=== PATIENT | male | born 1975 | race Caucasian/White ===

== ENCOUNTER 2022-05-11 15:19 | Emergency (ER) | payer BC ==
[2022-05-11] MEDS ORDERED: SODIUM CHLORIDE 0.9% 1,000 ML IV ONE (16:16)
[2022-05-11] MEDS ORDERED: methocarbamoL 500 MG TAB PO STA (16:19)
[2022-05-11 16:22] VITALS: BP 127/77; PULSE 89; RESP 16; TEMP 98.4
--- NOTE | 2022-05-11 17:11 | XR ---
EXAMINATION TYPE: XR chest 1V portable DATE OF EXAM: 05/11/2022 5:04 PM COMPARISON: none TECHNIQUE: XR chest 1V portable Portable AP radiograph of the chest. CLINICAL INDICATION:Male, 46 years old with history of fall; FINDINGS: Lungs/Pleura: Left basilar atelectasis. There is no evidence of pleural effusion, focal consolidation , or pneumothorax. Pulmonary vascularity: Unremarkable. Heart/mediastinum: Cardiomediastinal silhouette is unremarkable. Musculoskeletal: No acute osseous pathology. IMPRESSION: No acute cardiopulmonary disease/process.
[2022-05-11] MEDS ORDERED: MORPHINE SULFATE 4 MG/ML SYRINGE IVP STA ×2 (17:20→19:48)
--- NOTE | 2022-05-11 17:25 | XR ---
EXAMINATION TYPE: XR knee limited LT DATE OF EXAM: 05/11/2022 5:05 PM INDICATION: Patient age:Male; 46 years old; Reason for study: fall, pain; COMPARISON: None. TECHNIQUE: The Left knee(s) was examined in Frontal, lateral and oblique projections. FINDINGS: No evidence of any acute osseous pathology, soft tissue swelling, or joint effusion is no vinh. Small osteophytes of the tibial plateau and patella. IMPRESSION: 1. No acute osseous pathology. 2. Mild tricompartmental osteoarthritic changes.
--- NOTE | 2022-05-11 17:27 | XR ---
EXAMINATION TYPE: XR femur LT, XR Hip Complete LT DATE OF EXAM: 05/11/2022 5:04 PM INDICATION: Patient age:Male; 46 years old; Reason for study: fall, pain; COMPARISON: None TECHNIQUE: The left femur was evaluated in frontal and lateral views. The left hip was evaluated in frontal and lateral views. FINDINGS: Periprosthetic fracture with medial angulation. There is up to 3.6 cm displacement with medardo rtening. There is shortening of the fracture site. IMPRESSION: Acute left hip periprosthetic stem fracture with 3.6 cm displacement and angulation. There is mild sh ortening of the femur.
--- NOTE | 2022-05-11 17:33 | CT ---
EXAMINATION TYPE: CT brain wo con CT DLP: 1165.4 mGycm, Automated exposure control for dose reduction was used. DATE OF EXAM: 05/11/2022 5:07 PM COMPARISON: None. CLINICAL INDICATION:Male, 46 years old with history of fall, pain, Fall. TECHNIQUE: Brain: Axial CT images of the brain were obtained with coronal and sagittal reformats created and rev iewed. Contrast used: None. Oral contrast used: None. FINDINGS: Brain: Extra-axial spaces: No abnormal extra-axial fluid collections. Ventricular system: Within normal limits Cerebral parenchyma: No acute intraparenchymal hemorrhage or mass effect. The keys-white junction is well differentiated. Cerebellum: Unremarkable. Mass effect: No evidence of midline shift. Intracranial vasculature: unremarkable Soft tissues: Normal. Calvarium/osseous structures: No depressed skull fracture. Paranasal sinuses and mastoid air cells: Mild scattered paranasal sinus disease. Visualized orbits: Orbital contents are intact. IMPRESSION: No acute intracranial process.
[2022-05-11] MEDS ORDERED: KETOROLAC 15 MG/ML 1 ML VIAL IVP STA (18:36)
[2022-05-11 18:41] LABS: Basophils % (A) 0 %; Eosinophils # (A) 0.1 k/uL (0-0.7); Eosinophils % (A) 1 %; HCT 27.2 % (39.0-53.0); HGB 8.7 gm/dL (13.0-17.5); Lymphocytes # (A) 0.6 k/uL (1.0-4.8); Lymphocytes % (A) 9 %; MCH 31.9 pg (25.0-35.0); MCHC 32.1 g/dL (31.0-37.0); MCV 99.5 fL (80.0-100.0); Mean Platelet Volume 9.4; Monocytes # (A) 0.2 k/uL (0-1.0); Monocytes % (A) 4 %; Neutrophils # (A) 5.7 k/uL (1.3-7.7); Neutrophils % (A) 85 %; Platelet Count 160 k/uL (150-450); RBC 2.73 m/uL (4.30-5.90); RDW 13.7 % (11.5-15.5); WBC 6.7 k/uL (3.8-10.6)
--- NOTE | 2022-05-11 18:44 | ED ---
General Adult HPI - General Chief complaint: Fall Stated complaint: Fall Time Seen by Provider: 05/11/22 16:00 Source: patient, RN notes reviewed, old records reviewed Mode of arrival: ambulatory Limitations: no limitations - History of Present Illness Initial comments: Patient is a 46-year-old male with past medical history remarkable for prior alcohol abuse, as well as prior bilateral hip replacements who presents emergency Department after a fall. States he was standing at home when his left leg gave out on him. He fell onto his left side. Does not believe his hit his head but is uncertain if he passed out or not. Denies any other injuries other than to his left hip. Left leg is shortened, rotated. Denies any numbness. Endorses pain at the hip. States he previously had surgery done and report hospital by Dr. Duncan. He denies any chest pain, shortness breath, abdominal pain, back pain, nausea, vomiting. His no other acute complaint at this time. Presents over concern for injury to his left femur or hip replacement. Patient states she would prefer to remain in the [place] area rather than be transferred back downto. Prior hip surgeries were done 4 years ago approximately. - Related Data Home Medications Medication Instructions Recorded Confirmed Multivitamins, Thera [Multivitamin 1 tab PO DAILY 05/11/22 05/11/22 (formulary)] Nicotine 14Mg/24Hr Patch [Habitrol] 1 patch TRANSDERM DAILY PRN 05/11/22 05/11/22 Previous Rx's Medication Instructions Recorded Acetaminophen Tab [Tylenol] 650 mg PO Q4HR PRN tab 04/25/22 Naltrexone HCl [Revia] 50 mg PO DAILY 30 Days #30 tab 04/25/22 Pantoprazole [Protonix] 40 mg PO AC-BID 30 Days #60 tab 04/25/22 Sertraline [Zoloft] 100 mg PO DAILY 30 Days #30 tab 04/25/22 Thiamine [Vitamin B-1] 100 mg PO DAILY 30 Days #30 tablet 04/25/22 traZODone HCL [Desyrel] 100 mg PO HS 30 Days #30 tab 04/25/22 Allergies Allergy/AdvReac Type Severity Reaction Status Date / Time No Known Allergies Allergy Verified 05/11/22 18:27 Review of Systems ROS Statement: Those systems with pertinent positive or pertinent negative responses have been documented in the HPI. Review of Systems: CONST: Denies fever EYES: Denies blurry vision ENT: Denies nasal congestion C/V: Denies Chest pain RESP: Denies shortness of breath GI: Denies abdominal pain : Denies dysuria SKIN: Denies rash. MSK: Endorses left hip pain NEURO: Denies headache ROS Other: All systems not noted in ROS Statement are negative. Past Medical History Past Medical History: Asthma, Hypertension History of Any Multi-Drug Resistant Organisms: None Reported Past Surgical History: Joint Replacement Additional Past Surgical History / Comment(s): bilateral hip replacement , fx femur secondary to hip replacement. Past Anesthesia/Blood Transfusion Reactions: No Reported Reaction Past Psychological History: No Psychological Hx Reported Smoking Status: Never smoker Past Alcohol Use History: None Reported, Abuse, Daily Past Drug Use History: None Reported General Exam - General Exam Comments Initial Comments: General: Appears in mild distress secondary to left hip pain. HEAD: Normal with no signs of head trauma. Negative Walker sign. Negative raccoon eyes. EYES: PERRLA, EOMI, conjunctiva normal, no discharge. Pupils 3 mm and equal bilaterally. ENT: Hearing grossly intact, normal oropharynx. RESPIRATORY: Clear breath sounds bilaterally. No wheezes, rales, or rhonchi. C/V: Regular rate and rhythm. S1 and S2 auscultated, peripheral pulses 2+ and intact throughout ABD: Abd is soft, nontender, nondistended EXT: Her extremity is shortened and externally rotated. Tenderness over the proximal left femur. I do suspect a hip or femur fracture fracture. No midline spinal tenderness to palpation. Pelvis is stable. SKIN: No rashes or lesions observed on exposed skin. NEURO: Alert and oriented 4. No focal sensory strength deficits. Limitations: no limitations Course Vital Signs 05/11/22 15:20 Temperature 98.4 F Pulse Rate 89 Respiratory 16 Rate Blood Pressure 127/77 O2 Sat by Pulse 100 Oximetry Medical Decision Making - Medical Decision Making Was pt. sent in by a medical professional or institution (, PA, TV PRODUCTION ASSISTANT, urgent care, hospital, or fci...) When possible be specific @ -No Did you speak to anyone other than the patient for history (EMS, parent, family, police, friend...)? What history was obtained from this source @ -No Did you review nursing and triage notes (agree or disagree)? Why? @ -I reviewed and agree with nursing and triage notes Were old charts reviewed (outside hosp., previous admission, EMS record, old EKG, old radiological studies, urgent care reports/EKG's, fci records)? Report findings @ -No old charts were reviewed Differential Diagnosis (chest pain, altered mental status, abdominal pain women, abdominal pain men, vaginal bleeding, weakness, fever, dyspnea, syncope, headache, dizziness, GI bleed, back pain, seizure, CVA, palpatations, mental health, musculoskeletal)? @ -Muscle strain, muscle sprain, hip fracture, bony traumatic injury, intracranial injury. Fall. This list is not all inclusive. EKG interpreted by me (3pts min.). @ -None done X-rays interpreted by me (1pt min.). @ -X-rays of the chest reveals no acute cardiopulmonary processes obvious. Left lower extremity x-rays and pelvis x-rays remarkable for a left hip periprosthetic stem fracture. CT interpreted by me (1pt min.). @ -CT brain reveals no obvious evidence of acute intracranial process or injury. U/S interpreted by me (1pt. min.). @ -None done What testing was considered but not performed or refused? (CT, X-rays, U/S, la bs)? Why? @ -None What meds were considered but not given or refused? Why? @ -Did discuss analgesia medications with the patient. Initially refuses opiates. We will start with Robaxin been at his request. Toradol will be held at this time until CT brain returns as he did experiencing episode. Did you discuss the management of the patient with other professionals (professionals i.e. , PA, TV PRODUCTION ASSISTANT, lab, RT, psych nurse, social work therapist, floor specialist, teacher, traffic division commanding officer, case loader operator)? Give summary @ -Yes, at the patient's request, I initially did reach out to Dr. Contreras and Dr. Yeung's group as the patient's mother who is at bedside has prior history with them and family members have seen him in the past. They requested reaching out to them first to see if they would accept the case. I did discuss the case with Dr. Contreras who discussed the case and reviewed imaging with his partners including Dr. Yeung and they are unable to manage it at this time. After updating the patient and family, at this time we will reach out to Dr. Savage who is on-call for orthopedics. After discussion with Dr. savage, he recommends transfer back to [facility] with the original surgery was performed for higher level care. Due to the complexity of the fracture. Spoke with Dr. Lemus at [facility] who accepted the patient. smoking cessation discussed for >3mins.? @ -No Was critical care preformed (if so, how long)? @ -Yes, 35 minutes. Were there social determinants of health that impacted care today? How? (Homelessness, low income, unemployed, alcoholism, drug addiction, jaffe sportation, low edu. Level, literacy, decrease access to med. care, detention, rehab)? @ -No Was there de-escalation of care discussed even if they declined (Discuss DNR or withdrawal of care, Hospice)? DNR status @ -No What co-morbidities impacted this encounter? (DM, HTN, Smoking, COPD, CAD, Cancer, CVA, ARF, Chemo, Hep., AIDS, mental health diagnosis, sleep apnea, morbid obesity)? @ -Prior bilateral hip replacements Was patient admitted / discharged? Hospital course, mention meds given and route, prescriptions, significant lab abnormalities, going to OR and other pertinent info. @ -Based on the patient's presentation and physical exam, I'm concerned for a left femoral or hip fracture after a mechanical fall from standing. We will obtain plain film x-rays of the left leg as well as CT brain. Preop labs will be obtained as well over concern for fracture. Patient was in agreement this plan. He is hemodynamically stable. Patient be started on 1 L fluid bolus, as well as administered oral Robaxin at his request after discussing possible analgesia medications. He would like to avoid opiate medications of possible. We will hold Toradol until CT brain is back. He was in agreement with this plan. Patient's imaging is remarkable for a left periprosthetic stem fracture of the left hip. CT brain is unremarkable. After the patient. Discussed under standing as well as family, including his mother who is an RN. I discussed the patient does require surgery, and I did offer transfer down to [facility] however they would like to remain in the area and stay at [facility]. Patient's family and mother do have a history with Dr. Yeung's group. They requested that I recheck to their group first to see if they're willing to accept the case despite him not being control systems developer. As there is a history, and at patient's request this was done. I spoke with Dr. Contreras who was control systems developer who reached out to his partners including Anjana and reviewed imaging. Unfortunately they cannot handle the case at this time. After updating the family and discussing with them, they were in agreement they would still like to remain in [place] and were okay with reaching out to the on-call team, Dr. savage and their group.After speaking Dr. Savage, he recommends a higher level of care, and recommends that the patientbe transferred back to [facility] for surgery with his original surgeon Dr. Ranjith Duncan. I did the patient's family and they were in agreement this plan. Patient will receive a Bourne catheter. Patient received Toradol for pain at this time. patient was in agreement this plan. Transfer was delayed due to the above reasons, as the patient requested to stay at [facility] initially and requested specific ortho surgeons prior to the on-call ortho surgeon. After both were spoken to and refused, we reached out to [facility] at 1904 who eventually accepted the patient at approximately 1935. Accepting physician is Dr. Lemus. Patient transferred to their ER in cat2. Patient and family updated. They were in agreement with the plan. Patient transferred in stable condition. Placed in knee immobilizer and bourne placed prior to transfer. Undiagnosed new problem with uncertain prognosis? @ -No Drug Therapy requiring intensive monitoring for toxicity (Heparin, Nitro, Insulin, Cardizem)? @ -No Were any procedures done? @ -No Diagnosis/symptom? @ -Mechanical fall Acute, or Chronic, or Acute on Chronic? @ -Acute Uncomplicated (without systemic symptoms) or Complicated (systemic symptoms)? @ -Complicated Side effects of treatment? @ -No Exacerbation, Progression, or Severe Exacerbation? @ -No Poses a threat to life or bodily function? How? (Chest pain, USA, MS, pneumonia, PE, COPD, DKA, ARF, appy, cholecystitis, CVA, Diverticulitis, Homicidal, Suicidal, threat to staff... and all critical care pts) @ -No Diagnosis/symptom? @ -Left hip periprosthetic stem fracture Acute, or Chronic, or Acute on Chronic? @ -Acute Uncomplicated (without systemic symptoms) or Complicated (systemic symptoms)? @ -Complicated Side effects of treatment? @ -none Exacerbation, Progression, or Severe Exacerbation] @ -no Poses a threat to life or bodily function? @ -no - Lab Data Result diagrams: 05/11/22 18:34 05/11/22 18:34 Lab Results 05/11/22 05/11/22 05/11/22 Range/Units 18:34 18:34 18:34 WBC 6.7 (3.8-10.6) k/uL RBC 2.73 L (4.30-5.90) m/uL Hgb 8.7 L (13.0-17.5) gm/dL Hct 27.2 L (39.0-53.0) % MCV 99.5 (80.0-100.0) fL MCH 31.9 (25.0-35.0) pg MCHC 32.1 (31.0-37.0) g/dL RDW 13.7 (11.5-15.5) % Plt Count 160 (150-450) k/uL MPV 9.4 Neutrophils % 85 % Lymphocytes % 9 % Monocytes % 4 % Eosinophils % 1 % Basophils % 0 % Neutrophils # 5.7 (1.3-7.7) k/uL Lymphocytes # 0.6 L (1.0-4.8) k/uL Monocytes # 0.2 (0-1.0) k/uL Eosinophils # 0.1 (0-0.7) k/uL Basophils # 0.0 (0-0.2) k/uL PT 10.1 (9.0-12.0) sec INR 1.0 (<1.2) APTT 25.3 (22.0-30.0) sec Sodium 135 L (137-145) mmol/L Potassium 4.1 (3.5-5.1) mmol/L Chloride 107 (98-107) mmol/L Carbon Dioxide 26 (22-30) mmol/L Anion Gap 2 mmol/L BUN 8 L (9-20) mg/dL Creatinine 0.59 L (0.66-1.25) mg/dL Est GFR (CKD-EPI)AfAm >90 (>60 ml/min/1.73 sqM) Est GFR (CKD-EPI)NonAf >90 (>60 ml/min/1.73 sqM) Glucose 101 H (74-99) mg/dL Calcium 7.9 L (8.4-10.2) mg/dL Coronavirus (PCR) (Not Detectd) 05/11/22 Range/Units 19:09 WBC (3.8-10.6) k/uL RBC (4.30-5.90) m/uL Hgb (13.0-17.5) gm/dL Hct (39.0-53.0) % MCV (80.0-100.0) fL MCH (25.0-35.0) pg MCHC (31.0-37.0) g/dL RDW (11.5-15.5) % Plt Count (150-450) k/uL MPV Neutrophils % % Lymphocytes % % Monocytes % % Eosinophils % % Basophils % % Neutrophils # (1.3-7.7) k/uL Lymphocytes # (1.0-4.8) k/uL Monocytes # (0-1.0) k/uL Eosinophils # (0-0.7) k/uL Basophils # (0-0.2) k/uL PT (9.0-12.0) sec INR (<1.2) APTT (22.0-30.0) sec Sodium (137-145) mmol/L Potassium (3.5-5.1) mmol/L Chloride (98-107) mmol/L Carbon Dioxide (22-30) mmol/L Anion Gap mmol/L BUN (9-20) mg/dL Creatinine (0.66-1.25) mg/dL Est GFR (CKD-EPI)AfAm (>60 ml/min/1.73 sqM) Est GFR (CKD-EPI)NonAf (>60 ml/min/1.73 sqM) Glucose (74-99) mg/dL Calcium (8.4-10.2) mg/dL Coronavirus (PCR) Not Detected (Not Detectd) Critical Care Time Critical Care Time: Yes Total Critical Care Time: 35 Critical Care Time: Upon my evaluation, this patient had a high probability of imminent or life- threatening deterioration due to fall, left femoral periprosthetic fracture, tr ansfer, which required my direct attention, intervention, and personal management. I have personally provided 35 minutes of critical care time exclusive of time spent on separately billable procedures. Time includes review of laboratory data, radiology results, discussion with consultants, and monitoring for potential decompensation. Interventions were performed as documented in my note. Disposition Clinical Impression: Fall, Periprosthetic fracture around internal prosthetic left hip joint, Chronic anemia Disposition: OTHER INSTITUTION NOT DEFINED Condition: Stable Referrals: None,Stated [Primary Care Provider] - 1-2 days Time of Disposition: 19:35 - Out of Hospital Transfer - Req. Specs Out of Hospital Transfer - Requested Specifics: Other Emergency Center (Tra nsferred to [facility] in [place] for escalation of care due to complex fracture.)
[2022-05-11 18:49] LABS: African American GFR (CKD) >90 (>60 ml/min/1.73 sqM); Anion Gap 2 mmol/L; Blood Urea Nitrogen 8 mg/dL (9-20); Calcium 7.9 mg/dL (8.4-10.2); Carbon Dioxide 26 mmol/L (22-30); Chloride 107 mmol/L (98-107); Glucose 101 mg/dL (74-99); Non-African American GFR(CKD) >90 (>60 ml/min/1.73 sqM); Potassium 4.1 mmol/L (3.5-5.1); Sodium 135 mmol/L (137-145)
[2022-05-11 19:08] LABS: Partial Thromboplastin Time 25.3 sec (22.0-30.0); Prothrombin Time 10.1 sec (9.0-12.0)
== END 2022-05-11 20:26 | disposition other institution (70) ==
LOC: EC 15:19
DX: M97.02XA Periprosthetic fracture around internal prosthetic left hip joint, initial encounter (principal); D53.9 Nutritional anemia, unspecified; J45.909 Unspecified asthma, uncomplicated; I10 Essential (primary) hypertension; Z20.822 Contact with and (suspected) exposure to COVID-19; W18.30XA Fall on same level, unspecified, initial encounter; Y93.89 Activity, other specified; Y92.009 Unspecified place in unspecified non-institutional (private) residence as the place of occurrence of the external cause
CPT/HCPCS: 36415; 80048; 85025; 85610; 85730; 87635; 73502; 73552; 73560; 71045; 70450; 99291; 51702; 96374; 96375; 96376; 96361; J2270; J1885